=== PATIENT | female | born 1995 | race African-American/Black ===

== ENCOUNTER 2018-02-11 10:54 | Emergency (ER) | payer BC, OTHER ==
[2018-02-11 11:42] LABS: Bilirubin Negative (Negative); Blood, Urine Small (Negative); Clarity CLOUDY (Clear); Glucose, Urine (Dipstick) Negative (Negative); Leukocyte Trace (Negative); Nitrite Negative (Negative); Protein, Urine (Dipstick) Negative (Neg-Trace); Specific Gravity, Urine 1.022 (1.002-1.036); pH, Urine 6.5 (5.0-9.0)
[2018-02-11 11:43] LABS: Bacteria/HPF 1+ HPF (None Seen); Hyaline Casts/LPF 7-10 HYALINE CAST LPF (0-3 Hyaline); Pathc Cast-AUWi Flag 2.47 (0-2.49); WBC/HPF 0-3 HPF (0-3)
[2018-02-11 11:45] LABS: Pregnancy Test - Urine (BHCG) Negative (Negative); Pregu Control Background? CLEAR/WHITE (CLR/WHITE); Pregu Control Bar Appear? YES (CONTROL BAR); Specific Gravity 1.022 (1.002-1.036)
--- NOTE | 2018-02-11 13:43 | RAD ---
RIGHT WRIST 3 VIEWS: INDICATION: Injury with pain. FINDINGS: Carpals appear normally aligned. No fracture identified. IMPRESSION: No evidence of fracture. POS: [facility]
== END 2018-02-11 12:29 | disposition home or self-care (01) ==
LOC: ERS 10:54
DX: S63.501A Unspecified sprain of right wrist, initial encounter (principal); M67.431 Ganglion, right wrist; J45.909 Unspecified asthma, uncomplicated; F41.9 Anxiety disorder, unspecified; W19.XXXA Unspecified fall, initial encounter
CPT/HCPCS: 81003; 81015; 81025

== ENCOUNTER 2018-02-23 13:31 | Emergency (ER) | payer OTHER ==
[2018-02-23 14:09] LABS: #Eosinphils 0.5 thou/uL (0.0-0.7); #Lymphocytes 2.3 thou/uL (1.20-3.40); #Monocytes 0.2 thou/uL (0.11-0.59); #Neutrophils 2.8 thou/uL (1.40-6.50); %Basophils 0.8 % (0.0-1.0); %Eosinophils 8.6 % (0.0-10.0); %Lymphocytes 39.5 % (21.0-51.0); %Monocytes 3.5 % (0.0-10.0); %Neutrophils 47.6 % (42.0-75.0); Hemoglobin 13.1 g/dL (12.0-16.0); Mean Corpuscular HGB CONC 34.4 g/dL (32.0-36.0); Mean Corpuscular Hemoglobin 30.1 pg (27.0-31.0); Mean Corpuscular Volume 87.6 fL (78.0-98.0); Platelet Count 275 thou/uL (130-400); RBC Distribution Width 13.1 % (11.5-14.5); Red Blood Cell (RBC) Count 4.37 mill/uL (4.20-5.40); White Blood Cell (WBC) Count 5.9 thou/uL (4.8-10.8)
[2018-02-23 14:16] LABS: BHCG - Serum Negative (NEGATIVE); Pregs Control Background? CLEAR/WHITE (CLR/WHITE); Pregs Control Bar Appear? YES (CONTROL BAR)
[2018-02-23 14:33] LABS: ALT (SGPT) 11 U/L (8-55); AST (SGOT) 18 U/L (5-34); Albumin 4.3 g/dL (3.5-5.0); Alkaline Phosphatase 59 U/L (40-150); Anion Gap 14 mmol/L (10-20); BUN (Urea Nitrogen) 8 mg/dL (7.0-18.7); Bilirubin, Total 0.5 mg/dL (0.2-1.2); Calc. Creatinine Clearance 0 mL/min (70-130); Calcium 9.5 mg/dL (7.8-10.44); Carbon Dioxide 23 mmol/L (22-29); Chloride 103 mmol/L (98-107); Estimated GFR-MDRD Greater than 90; Globulin 3.8 g/dL (2.4-3.5); Glucose 117 mg/dL (70-105); Lipase 16 U/L (8-78); Potassium 3.9 mmol/L (3.5-5.1); Protein, Total 8.1 g/dL (6.0-8.3); Sodium 136 mmol/L (136-145)
[2018-02-23 15:59] LABS: Bilirubin Negative (Negative); Blood, Urine Negative (Negative); Clarity CLEAR (Clear); Glucose, Urine (Dipstick) Negative (Negative); Leukocyte Negative (Negative); Nitrite Negative (Negative); Protein, Urine (Dipstick) Negative (Neg-Trace); Specific Gravity, Urine 1.008 (1.002-1.036); pH, Urine 7.5 (5.0-9.0)
== END 2018-02-23 16:25 | disposition home or self-care (01) ==
LOC: ERS 13:31
DX: R30.0 Dysuria (principal); J45.909 Unspecified asthma, uncomplicated; F41.9 Anxiety disorder, unspecified
CPT/HCPCS: 36415; 51701; 80053; 81003; 83690; 84703; 85025; 87086; A4353

== ENCOUNTER 2018-05-06 12:13 | Emergency (ER) | payer OTHER ==
[2018-05-06] MEDS ORDERED: Fluorescein Opthalmic Strip ONE (12:47)
[2018-05-06] MEDS ORDERED: Proparacaine 0.5% Opth 15 ML BOT ONE (12:47)
[2018-05-06] MEDS ORDERED: Tobramycin/dex OPTH 2.5 ML BOT ONE (14:42)
== END 2018-05-06 14:50 | disposition home or self-care (01) ==
LOC: ERS 12:13
DX: H16.001 Unspecified corneal ulcer, right eye (principal); F41.9 Anxiety disorder, unspecified; J45.909 Unspecified asthma, uncomplicated; X58.XXXA Exposure to other specified factors, initial encounter
CPT/HCPCS: 99283

== ENCOUNTER 2019-01-29 17:25 | Emergency (ER) | payer OTHER | END 2019-01-29 19:20 | disposition home or self-care (01) | LOC: ERS 17:25 | DX: N64.52 Nipple discharge (principal); J45.909 Unspecified asthma, uncomplicated; F41.9 Anxiety disorder, unspecified | CPT/HCPCS: 99282 ==

== ENCOUNTER 2019-05-23 21:28 | Emergency (ER) | payer OTHER | END 2019-05-23 22:19 | LOC: ERS 21:28 | DX: Z53.21 Procedure and treatment not carried out due to patient leaving prior to being seen by health care provider (principal) ==

== ENCOUNTER 2019-08-14 09:05 | Emergency (ER) | payer OTHER ==
--- NOTE | 2019-08-14 10:26 | RAD ---
CHEST 2 VIEWS: HISTORY: Cough. COMPARISON: Radiograph 09/23/2015. FINDINGS: The lungs are clear. No pneumothorax. No effusion. No acute osseous abnormality. Cardiac silhouet te and mediastinal contours are within normal limits. IMPRESSION: No acute intrathoracic abnormality. POS: [facility]
== END 2019-08-14 10:57 | disposition home or self-care (01) ==
LOC: ERS 09:05
DX: J06.9 Acute upper respiratory infection, unspecified (principal); J45.909 Unspecified asthma, uncomplicated; F41.9 Anxiety disorder, unspecified
CPT/HCPCS: 71046; 87804